=== PATIENT | female | born 1955 | race Caucasian/White ===

== ENCOUNTER → 2016-04-08 | Outpatient (CLI) | payer BC ==
[~2016-04-08] MED LIST: ALBU18002 INH; CALC600T9 PO; CHOL100010 PO; LEVO50TA PO; MOME220A INH; MULTTAB PO; POLY1POW2 PO; TAMO20TA47 PO; ZOLE5INJ IM
--- NOTE | 2016-04-08 14:09 | MAMMOGRAPHY REPORT ---
UNILATERAL LEFT DIGITAL DIAGNOSTIC MAMMOGRAM TOMOSYNTHESIS WITH CAD: 04/08/2016 CLINICAL HISTORY: History of left breast cancer status post lumpectomy September 2015, as well as radiati on therapy. The patient reports no current complaints. TECHNIQUE: Breast tomosynthesis in addition to standard 2D mammography was performed. Current study was also evaluated with a Computer Aided Detection (CAD) system. Left CC and MLO 2-D and tomosynth esis images and spot magnification left CC and ML views were obtained. COMPARISON: Comparison is made to exams dated: 08/28/2015 aspiration, 08/28/2015 mammogram, 08/28/2015 ultrasound biopsy, 08/19/2015 mammogram, 08/19/2015 ultrasound, and 07/26/2015 mammogram - [facility]. BREAST COMPOSITION: The tissue of the left breast is heterogeneously dense, which may obscure small masses. FINDINGS: There are new post surgical changes in the left lower inner quadrant from prior lumpectom y, including new density and architectural distortion at the lumpectomy bed. No suspicious masses o r clusters of calcifications are noted at the lumpectomy bed on the spot magnification views. Addit ionally, there is mild architectural distortion in the left axilla from sentinel lymph node biopsy. The remainder of the left breast is stable compared to prior exams, without suspicious masses, calc ifications, or areas of architectural distortion noted. Benign-appearing left breast calcifications are not significantly changed. IMPRESSION: ACR-BI-RADS CATEGORY 3: PROBABLY BENIGN Expected posttreatment changes in the left breast, without mammographic evidence of malignancy in th e left breast. Recommend bilateral diagnostic mammograms in 6 months, to reevaluate the left breast postsurgical changes and for routine mammography of the right breast. The patient has been verbally notified of the results. Approximately 10% of breast cancers are not detected with mammography. A negative mammographic repor t should not delay biopsy if a clinically suggestive mass is present. Maci Rizzo M.D. /:04/08/2016 11:09:48 Western Felt Hat Blocker: Kendal Sin, [facility] letter sent: Personal History 3 BI-RADS Code: ACR-BI-RADS Category 3: Probably Benign
== END | disposition home or self-care (01) ==
LOC: C.MAMM 10:33
PROVIDERS: ATTEND Radiology Radiation Oncology
DX: Z08 Encounter for follow-up examination after completed treatment for malignant neoplasm (principal); Z85.3 Personal history of malignant neoplasm of breast; Z92.3 Personal history of irradiation

== ENCOUNTER → 2016-05-05 | Outpatient (CLI) | payer BC | END | disposition home or self-care (01) | LOC: C.MAMM 12:35 | PROVIDERS: ATTEND Internal Medicine | DX: M81.0 Age-related osteoporosis without current pathological fracture (principal) ==

== ENCOUNTER → 2016-05-27 | Outpatient (CLI) | payer BC | END | disposition home or self-care (01) | LOC: C.PAPS 09:31 | PROVIDERS: ATTEND Obstetrics & Gynecology | DX: Z01.419 Encounter for gynecological examination (general) (routine) without abnormal findings (principal) ==

== ENCOUNTER → 2016-07-06 | Outpatient (CLI) | payer BC ==
[~2016-07-06] MED LIST changes: -TAMO20TA47 PO; +TAMO20TA9 PO
--- NOTE | 2016-07-08 08:51 | CODING QUERY NO DIAGNOSIS ---
TREATMENT RENDERED WITHOUT A DIAGNOSIS To promote full compliance with coding requirements relating to patient care, physician participation is requested in all cases of ore charger uncertainty. Please assist us with providing a diagnosis/symptom for the test(s) below: A diagnosis/symptom was not documented on your Order. A valid diagnosis/symptom is required to bill all insurances. Please remember that we are unable to code a diagnosis of rule out, probable, possible, questionable, or suspected. Tests that require a diagnosis: DOS: 07/06/16 * SHAVE BIOPSY LEFT RADIAL WRIST DIAGNOSIS: Provider Signature: Date: Thank you Octavia Olivia Klarna Information Management Once completed, please kindly fax back to [phone] For questions please call [phone]
== END | disposition home or self-care (01) ==
LOC: C.PATHSPEC 17:48
PROVIDERS: ATTEND Dermatology
DX: L90.5 Scar conditions and fibrosis of skin (principal)

== ENCOUNTER → 2016-08-04 | Outpatient (CLI) | payer BC ==
[2016-08-04 13:30] VITALS: BP 130/65; PULSE 72; TEMP 36.7; O2SAT 99
--- NOTE | 2016-08-04 17:54 | Radiation Oncology Follow-Up ---
Radiation Oncology Follow-Up Date of Visit August 04, 2016. (Stephania Cruz PA-C) Reason For Visit 6 month follow-up (Stephania Cruz PA-C) Radiation Completion Date Hypofractionation 12/19/15 (Stephania Cruz PA-C) Diagnosis (1) Breast cancer Status: Resolved Onset Date: 09/13/2015 Stage: l Permanent Comment: DIAGNOSIS: Left breast, invasive ductal carcinoma, grade 1, ER/NM positive, Her2 negative, [id number], stage IA TREATMENT: 1. Status post needle biopsy 08/28/2015 2. Lumpectomy/SLN - 09/13/2015, 09/27/2015 3. Status post completion of radiation therapy 12/19/2015 utilizing hypo- fractionation. Received 5130 cGy Last Edited By: Stephania Cruz on Dec 31, 2015 10:34 (Stephania Cruz PA-C) History of Present Illness Ms. Sofia is a 60-year-old postmenopausal female who recently presented with an abnormal mammogram on 07/26/2015 which revealed 2 asymmetries within the left medial breast measuring 5 mm. She subsequently underwent a targeted ultrasound and diagnostic mammogram on 07/19/2015 which revealed a 5.4 mm mass in the lower inner posterior left breast and a similar appearing lobulated 5.2 mm mass in the middle one third of the lower breast. Ultrasonography of the left breast lesions confirmed hypo-echoic, solid-appearing masses in the left breast at the 7:00 and 9:00 positions. She subsequently underwent targeted ultrasound guided biopsies of both lesions on 08/28/2015. The mass at 9:00 was completely aspirated and assumed to be benign. The mass at 7:00 in the left breast was biopsied with clip placement on the same day as well. Pathology of the left breast mass revealed atypical intraductal papillary lesion and a low-grade ductal carcinoma in situ cannot be ruled out. The patient was subsequently referred to Dr. Alistair Kumar who recommended an excisional biopsy which was completed on 09/13/2015. The pathology was initially read to favor in situ carcinoma and was sent out for a pathologic review at the [place] and the final pathologic specimen confirmed invasive ductal carcinoma. The pathology report stated the mass was 1.2 cm in the greatest dimension and the margins were all negative by at least 5 mm. The tumor was grade 1 and was estrogen receptor positive, progesterone receptor positive and HER-2 negative. There was no evidence of ductal carcinoma in situ or lymphovascular space invasion. After reviewing the pathology report, Dr. Kumar took the patient back to the operating room for sentinel lymph node biopsy on 09/27/2015 which did reveal no evidence of breast carcinoma in the [address] Kumar has ordered a Oncotype DX at the request of the patient and has referred the patient for consideration of radiation therapy. Overall, the patient is doing relatively well and has healed up from surgery. She has no other complaints. She underwent a CT simulation and was found a candidate for hypo-fractionation. Radiation was completed 12/19/2015 she received 5130 cGy. (Stephania Cruz PA-C) Interim History She's been doing well over the past 6 months. She has noted no changes to her breast. She has detected no masses. She previously had some mild tenderness no area of the axilla. This resolved without difficulty. She has noted no swelling of her arm. She is up-to-date on mammography. She continues on tamoxifen and denies side effects. (Stephania Cruz PA-C) Allergies Coded Allergies: Erythromycin (Verified Allergy, Intermediate, temporary loss of hearing, 02/18/15) affected hearing x 6 weeks Penicillins (Verified Allergy, Unknown, 04/19/09) Home Medications Scheduled Calcium Carbonate-Vitamin D (Calcium + D), DAILY Cholecalciferol (Vitamin D), 1,000 INTER.UNIT PO DAILY Levothyroxine Sodium (Synthroid), 1 TAB PO DAILY Mometasone Furoate (Asmanex 120 Metered Doses), 1 PUFF INH BID Multivitamins/Minerals (Mvi With Minerals), 1 TAB PO DAILY Tamoxifen (Nolvadex), 20 MG PO DAILY Zoledronic Acid (Reclast), 5 MG IM YEARLY Review of Systems Gastrointestinal: Symptoms: WNL Oral: Symptoms: No Problems Respiratory: Symptoms: WNL Urinary: Symptoms: WNL Skin: Symptoms: No Problems Breast: Right Upper Arm Measurement: 29.5 Right Mid Arm Measurement: 24.5 Right Wrist Measurement: 15.5 Left Upper Arm Measurement: 31.0 Left Mid Arm Measurement: 24.5 Left Wrist Measurement: 15.0 Arm Dominence: Right (Stephania Cruz PA-C) Physical Exam Vital Signs Date Time Temp Pulse Resp B/P Pulse Ox O2 Delivery O2 Flow Rate FiO2 08/04/16 13:30 36.7 72 20 130/65 99 Fatigue: None General Appearance: no apparent distress Eyes: normal inspection, EOMI ENT: normal ENT inspection, hearing grossly normal Neck: supple, no adenopathy, thyroid normal Respiratory/Chest: lungs clear, no respiratory distress, no accessory muscle use Breast: Breast examination reveals well-healed incisions of the left breast. There are no masses or tenderness and no axillary adenopathy. There are no skin retractions or nipple changes. Using the Morton score cosmesis she has a an excellent outcome. The right breast showed no masses or tenderness and no axillary adenopathy. Cardiovascular: regular rate, rhythm, no gallop, no murmur Extremities: no pedal edema Neurologic/Psychiatric: no motor/sensory deficits, alert, normal mood/affect Skin: normal color (Stephania Cruz PA-C) Additional Studies Patient: LULU SOFIA [facility] Rec: [id number] Address1: [address] Address2: Acct ID: [id number] Date: 1955 Sex: F Ref Phy: Alistair Kumar M.D. Att Phy: Stephania Cruz PA-C Kerry Phy: Rickey Lopez M.D. Inter Phy: Maci Rizzo MD [facility] Zip: [place] [address] SC: C.MAMM Report #: [id number] Sole Molder: [id number] Diagnosis: S/P RADIATION LT BREAST CA Service Date: 04/08/16 MNE: [id number] Ordering Dr: Stephania Cruz PA-C CC: Stephania Cruz PA-C CONF: DICTATED BY: Maci Rizzo MD MAMMOGRAPHY REPORT UNILATERAL LEFT DIGITAL DIAGNOSTIC MAMMOGRAM TOMOSYNTHESIS WITH CAD: 04/08/2016 CLINICAL HISTORY: History of left breast cancer status post lumpectomy September 2015 , as well as radiation therapy. The patient reports no current complaints. TECHNIQUE: Breast tomosynthesis in addition to standard 2D mammography was performed. Current study was also evaluated with a Computer Aided Detection (CAD ) system. Left CC and MLO 2-D and tomosynthesis images and spot magnification left CC and ML views were obtained. COMPARISON: Comparison is made to exams dated: 08/28/2015 aspiration, 08/28/2015 mammogram, 08/28/2015 ultrasound biopsy, 08/19/2015 mammogram, 08/19/2015 ultrasound , and 07/26/2015 mammogram - [facility]. BREAST COMPOSITION: The tissue of the left breast is heterogeneously dense, which may obscure small masses. FINDINGS: There are new post surgical changes in the left lower inner quadrant from prior lumpectomy, including new density and architectural distortion at the lumpectomy bed. No suspicious masses or clusters of calcifications are noted at the lumpectomy bed on the spot magnification views. Additionally, there is mild architectural distortion in the left axilla from sentinel lymph node biopsy. The remainder of the left breast is stable compared to prior exams , without suspicious masses, calcifications, or areas of architectural distortion noted. Benign-appearing left breast calcifications are not significantly changed. IMPRESSION: ACR-BI-RADS CATEGORY 3: PROBABLY BENIGN Expected posttreatment changes in the left breast, without mammographic evidence of malignancy in the left breast. Recommend bilateral diagnostic mammograms in 6 months, to reevaluate the left breast postsurgical changes and for routine mammography of the right breast. The patient has been verbally notified of the results. Approximately 10% of breast cancers are not detected with mammography. A negative mammographic report should not delay biopsy if a clinically suggestive mass is present. Maci Rizzo M.D. ah/:04/08/2016 11:09:48 Door Closer: Kendal Sin, [facility] letter sent: Personal History 3 BI-RADS Code: ACR-BI-RADS Category 3: Probably Benign Dictated by: Maci Rizzo MD Signed by: Maci Rizzo MD (Stephania Cruz PA-C) Assessment & Plan Plan: Continue with regular he scheduled mammography. She is scheduled for her next bilateral digital mammogram in September. We will she continues on tamoxifen. Continue regular follow-up with Dr. Kumar and Dr. Lopez. We asked her to return to our office in 1 year. She may call if she has any questions or concerns in the interim. (Stephania Cruz PA-C) I agree with note created by Stephania Cruz PA-C. I reviewed the patient's chart and information with her. I have examined and evaluated the patient. I reviewed relevant clinical information and answered the patient's and/or family' s questions. (Veeral. Quiñonez MD) Total Time In Follow-Up I spent 20 minutes speaking to the patient and performing examination. I spent 15 minutes reviewing information and completing this note. (Stephania Cruz PA-C) I spent 15 minutes examining and counseling the patient. (Veeral. Quiñonez MD) Copy To Alistair Kumar M.D.; Rickey Lopez M.D. Problem Qualifiers (1) Breast cancer: Breast location: lower outer quadrant of breast Estrogen receptor status: positive Patient sex: female Laterality: left Qualified Codes: C50.512 - Malignant neoplasm of lower-outer quadrant of left female breast; Z17.0 - Estrogen receptor positive status [ER+]
== END | disposition home or self-care (01) ==
LOC: C.ONC 13:28
PROVIDERS: ATTEND Physician Assistant Medical
DX: Z08 Encounter for follow-up examination after completed treatment for malignant neoplasm (principal); Z92.3 Personal history of irradiation; Z85.3 Personal history of malignant neoplasm of breast

== ENCOUNTER → 2016-10-07 | Outpatient (CLI) | payer BC ==
[~2016-10-07] MED LIST changes: +TAMO20TA47 PO; -TAMO20TA9 PO
--- NOTE | 2016-10-07 12:44 | MAMMOGRAPHY REPORT ---
BILATERAL DIGITAL DIAGNOSTIC MAMMOGRAM TOMOSYNTHESIS WITH CAD: 10/07/2016 CLINICAL HISTORY: 61-year-old woman with a personal history of left breast cancer status post breast conservation treatment. TECHNIQUE: Bilateral breast tomosynthesis in addition to standard 2D mammography was performed. Spot magnification CC and ML views were also obtained. Current study was also evaluated with a Computer Aided Detection (CAD) system. COMPARISON: Comparison is made to exams dated: 04/08/2016 mammogram, 08/28/2015 mammogram, 08/19/2015 ma mmogram, 08/19/2015 ultrasound, 07/26/2015 mammogram, and 07/25/2014 mammogram - [facility]. BREAST COMPOSITION: The tissue of both breasts is heterogeneously dense, which may obscure small mas ses. FINDINGS: There is expected architectural distortion in the lower inner middle and posterior left araceli ast, at the site of prior lumpectomy. There is mild skin irregularity in the medial left breast, and mild diffuse skin thickening of the left breast, likely related to prior treatment. No new suspicio us mass, architectural distortion or cluster of microcalcifications is seen bilaterally. IMPRESSION: ACR-BI-RADS CATEGORY 3: PROBABLY BENIGN Expected post changes in the left breast, and stable mammographic appearance of the right breast, wit hout mammographic evidence of malignancy bilaterally. Another close follow-up diagnostic left mammog flakita and possible ultrasound is recommended in 6 months. Routine mammography of the right breast is d ue in 12 months. These results and recommendations were discussed with the patient at the time of the exam. Approximately 10% of breast cancers are not detected with mammography. A negative mammographic report should not delay biopsy if a clinically suggestive mass is present. Cecilia Baum M.D. ay/:10/07/2016 10:45:02 Ranger Aide: Mildred VILLAFANA(Fina)(Jaki), [facility] letter sent: Follow Up Recommended 3 BI-RADS Code: ACR-BI-RADS Category 3: Probably Benign
== END | disposition home or self-care (01) ==
LOC: C.MAMM 10:19
PROVIDERS: ATTEND Physician Assistant Medical
DX: Z08 Encounter for follow-up examination after completed treatment for malignant neoplasm (principal); Z85.3 Personal history of malignant neoplasm of breast

== ENCOUNTER → 2016-10-15 | Day surgery (SDC) | payer BC ==
[2016-10-02 09:58] VITALS: Ht 170.2 cm; Wt 70.0 kg
[~2016-10-15] VITALS: Ht 170.2 cm; Wt 70.0 kg
[~2016-10-15] MED LIST changes: +LIDOCAINE HCL 2% 2 ML VIAL (20MG/ML) ONE; +PROPOFOL IV EMULSION 10 MG/ML 20 ML VIAL IV ONE; +SODIUM CHLORIDE 0.9% 500ML 500 ML IV ONE
--- NOTE | 2016-10-15 14:04 | Endo History and Physical ---
History & Physical Date of Service: Oct 15, 2016. Chief Complaint: Screening Referring Physician: Ariel Abdalla History of Present Illness 61 yo CF who presents for screening colonoscopy. Past Medical History Osteoporosis, Arthritis, Asthma, Gastrointestinal Disorder, Reflux, Cancer, Thyroid Disease Past Surgical History Hx Cardiac Surgery: No Hx Internal Defibrillator: No Hx Pacemaker: No Hx Abdominal Surgery: Yes (CERVICAL GROWTH REMOVAL) Hx of Implantable Prosthesis: No Hx Post-Op Nausea and Vomiting: No Hx Cancer Surgery: Yes (LT BREAST LUMPECTOMY WITH SENTINEL NODE BIOPSY) Hx Thoracic Surgery: No Hx Orthopedic: Yes (LT WRIST GANGLION CYSTECTOMY) Hx Urinary Tract Surgery: No Family History Colon CA, Polyp Social History Smoking Status: Never Smoker Hx Substance Use: No Hx Alcohol Use: Yes (OCCASIONAL) Allergies Coded Allergies: Erythromycin (Verified Allergy, Intermediate, temporary loss of hearing, ) affected hearing x 6 weeks Penicillins (Verified Allergy, Unknown, HIVES, 10/02/16) Current Medications Reported Home Medications Medications Dose Route/Sig Max Daily Dose Days Date Category Proair Respiclick (Albuterol Sulfate) 108 Mcg/Act Aer 2 Puffs INH Q4H PRN 10/02/16 Reported Polyethylene Glycol 3350 (Polyethylene Glycol 3350 (Bulk) 1 Pow Pow 17 Gm PO DAILY PRN 10/02/16 Reported Reclast (Zoledronic Acid) 5 Mg/100 Ml Inj 5 Mg IM YEARLY 08/04/16 Reported Nolvadex (Tamoxifen Citrate) 20 Mg Tab 20 Mg PO QAM 02/04/16 Reported Mvi With Minerals (Multivitamins/Minerals) Tab 1 Tab PO QAM 02/18/15 Reported Vitamin D (Cholecalciferol) 1,000 Inter.unit Tab 1,000 Inter.unit PO QAM 02/18/15 Reported Calcium + D (Calcium Carbonate-Vitamin D) 1 Tab Tab 1 Tab PO QAM 02/18/15 Reported Synthroid (Levothyroxine Sodium) 50 Mcg Tab 1 Tab PO QAM 02/18/15 Reported Asmanex 120 Metered Doses (Mometasone Furoate) 220 Mcg/ Aer 1 Puff INH BID 02/18/15 Reported Vital Signs Weight (Kilograms): 70 Height (Feet): 5 Height (Inches): 7 Date Time Temp Pulse Resp B/P (MAP) Pulse Ox O2 Delivery O2 Flow Rate FiO2 10/15/16 13:59 36.4 72 16 114/63 (80) 98 Room Air Physical Exam General Appearance: WD/WN, no apparent distress Respiratory/Chest: Auscultation: breath sounds normal Cardiovascular: Heart Auscultation: RRR Abdomen: Bowel Sounds: normal Inspection & Palpation: soft, non-distended, no tenderness, guarding & rebound Assessment and Plan Assessment: 61 yo CF who presents for screening colonoscopy. Plan: Proceed with colonoscopy.
--- NOTE | 2016-10-15 15:01 | GI REPORT ---
Procedure Date: 10/15/2016 2:27 PM THIS REPORT HAS BEEN AMENDED Addendum Number: 1 Addendum Date: 10/15/2016 3:44:50 PM No specimens were collected during this procedure, and therefore, no pathology is pending. Repeat colonoscopy in 10 years. Procedure: Colonoscopy Indications: Screening for colorectal malignant neoplasm Medicines: Monitored Anesthesia Care Complications: No immediate complications. Estimated Blood Loss: Estimated blood loss: none. Procedure: Pre-Anesthesia Assessment: - Prior to the procedure, a History and Physical was performed, and patient medications and allergies were reviewed. The patient's tolerance of previous anesthesia was also reviewed. The risks and benefits of the procedure and the sedation options and risks were discussed with the patient. All questions were answered, and informed consent was obtained. Prior Anticoagulants: The patient has taken no previous anticoagulant or antiplatelet agents. ASA Grade Assessment: II - A patient with mild systemic disease. After reviewing the risks and benefits, the patient was deemed in satisfactory condition to undergo the procedure. After I obtained informed consent, the scope was passed under direct vision. Throughout the procedure, the patient's blood pressure, pulse, and oxygen saturations were monitored continuously. The On-site loaner was introduced through the anus and advanced to the cecum, identified by appendiceal orifice and ileocecal valve. The colonoscopy was performed without difficulty. The patient tolerated the procedure well. The quality of the bowel preparation was good. The terminal ileum, ileocecal valve, appendiceal orifice, and rectum were photographed. Findings: Non-bleeding internal hemorrhoids were found during retroflexion. The hemorrhoids were small. Impression: - Non-bleeding internal hemorrhoids. - No specimens collected. Recommendation: - Resume previous diet. - Continue present medications. - Repeat colonoscopy for surveillance based on pathology results. - Return to primary care physician as previously scheduled. Tristin Emanuel, DO 10/15/2016 3:00:44 PM This report has been signed electronically. Note Initiated On: 10/15/2016 2:27 PM I attest to the content of the Intraoperative Record and orders documented therein, exceptions below Tristin BernabeFátima Emanuel, DO 10/15/2016 3:45:36 PM This report has been signed electronically.
[2016-10-15 15:17] VITALS: BP 99/60; PULSE 57; O2SAT 99
--- NOTE | 2016-10-15 15:18 | Discharge Instructions ---
Endoscopy Patient Instructions Date / Procedure(s) Performed Oct 15, 2016. Colonoscopy Allergy Information Coded Allergies: Erythromycin (Verified Allergy, Intermediate, temporary loss of hearing, ) affected hearing x 6 weeks Penicillins (Verified Allergy, Unknown, HIVES, 10/02/16) Discharge Date / Findings Oct 15, 2016. Internal hemorrhoids Medication Instructions OK to resume all medications today as prescribed Reported Home Medications Medications Dose Route/Sig Max Daily Dose Days Date Category Proair Respiclick (Albuterol Sulfate) 108 Mcg/Act Aer 2 Puffs INH Q4H PRN 10/02/16 Reported Polyethylene Glycol 3350 (Polyethylene Glycol 3350 (Bulk) 1 17 Gm PO DAILY PRN 10/02/16 Reported Reclast (Zoledronic Acid) 5 Mg/100 Ml Inj 5 Mg IM YEARLY 08/04/16 Reported Nolvadex (Tamoxifen Citrate) 20 Mg Tab 20 Mg PO QAM 02/04/16 Reported Mvi With Minerals (Multivitamins/Minerals) Tab 1 Tab PO QAM 02/18/15 Reported Vitamin D (Cholecalciferol) 1,000 Inter.unit Tab 1,000 Inter.unit PO QAM 02/18/15 Reported Calcium + D (Calcium Carbonate-Vitamin D) 1 Tab Tab 1 Tab PO QAM 02/18/15 Reported Synthroid (Levothyroxine Sodium) 50 Mcg Tab 1 Tab PO QAM 02/18/15 Reported Asmanex 120 Metered Doses (Mometasone Furoate) 220 Mcg/ Aer 1 Puff INH BID 02/18/15 Reported Provider Instructions Activity Restrictions - No exercising or heavy lifting for 24 hours. - Do not drink alcohol the day of the procedure. - Do not drive a car or operate machinery until the day after the procedure. - Do not make any important decisions or sign important papers in 24 hours after the procedure. Following Day: - Return to full activity which may include returning to work/school. Diet Start your diet with liquids and light foods (jello, soup, juice, toast). Then eat your usual diet if not nauseated. Treatment For Common After Affects For mild abdominal pain, bloating, or excessive gas: - Rest - Eat lightly - Lie on right side Follow-Up Information Follow-up with Ariel Abdalla as scheduled Anesthesia Information What You Should Know You have had a procedure that required some medicine to reduce anxiety and discomfort. This treatment is called moderate sedation. After receiving the treatment, you may be sleepy, but you will be able to breathe on your own. The effects of the treatment may last for several hours. Follow these instructions along with Activity/Diet recommendations noted above: * Do NOT do anything where dizziness or clumsiness would be dangerous. * Rest quietly at home today, then you can be up and about tomorrow. * Have a responsible person stay with you the rest of today. * You may have had an I.V. today. If so, you may take the dressing off later today. Recommendations Call your doctor if: * Trouble breathing * Continuous vomiting for more than 24 hours * Temperature above 101 degrees * Severe abdominal pain or bloating * Pain not relieved by pain medicine ordered * There is increased drainage or redness from any incision * A large amount of rectal bleeding greater than 2-3 tablespoons. (If you had a polyp/s removed or have hemorrhoids, a small amount of blood - from the rectum is to be expected.) * You have any unanswered questions or concerns. IN THE EVENT OF A SERIOUS EMERGENCY, GO TO THE NEAREST EMERGENCY ROOM Your discharge instructions were prepared by provider Tristin Emanuel. Patient Instructions Signature Page Cele Sofia Patient (or Guardian) Signature/Date: I have read and understand the instructions given to me by my caregivers. Caregiver/RN/Doctor Signature/Date: The above-named patient and/or guardian has received patient instructions on this date. + Original Patient Signature Page (only) stays with chart. Please make copy for patient.
--- NOTE | 2016-10-15 15:41 | Anesthesiology Progress Note ---
Anesthesia Post Op Note Date & Time Oct 15, 2016 at 15:41 Vital Signs Pain Intensity: 0 Vital Signs Past 12 Hours Date Time Temp Pulse Resp B/P (MAP) Pulse Ox O2 Delivery O2 Flow Rate FiO2 10/15/16 15:17 57 16 99/60 (73) 99 Room Air 10/15/16 15:07 60 16 98/56 (70) 95 Room Air 10/15/16 14:57 61 16 94/43 (60) 100 Room Air 10/15/16 13:59 36.4 72 16 114/63 (80) 98 Room Air Notes Mental Status: alert / awake / arousable, participated in evaluation Pt Amnestic to Procedure: Yes Nausea / Vomiting: adequately controlled Pain: adequately controlled Airway Patency, RR, SpO2: stable & adequate BP & HR: stable & adequate Hydration State: stable & adequate Anesthetic Complications: no major complications apparent
== END | disposition home or self-care (01) ==
LOC: C.GI 13:26
PROVIDERS: ATTEND Internal Medicine
DX: Z12.11 Encounter for screening for malignant neoplasm of colon (principal); K64.8 Other hemorrhoids; Z80.0 Family history of malignant neoplasm of digestive organs; Z83.71 Family history of colonic polyps; J45.909 Unspecified asthma, uncomplicated; K21.9 Gastro-esophageal reflux disease without esophagitis; E07.9 Disorder of thyroid, unspecified; M81.0 Age-related osteoporosis without current pathological fracture; Z79.899 Other long term (current) drug therapy

== ENCOUNTER → 2017-04-12 | Outpatient (CLI) | payer OTHER ==
[~2017-04-12] MED LIST changes: -LIDOCAINE HCL 2% 2 ML VIAL (20MG/ML) ONE; -PROPOFOL IV EMULSION 10 MG/ML 20 ML VIAL IV ONE; -SODIUM CHLORIDE 0.9% 500ML 500 ML IV ONE; -TAMO20TA47 PO; +TAMO20TA9 PO
--- NOTE | 2017-04-12 15:53 | MAMMOGRAPHY REPORT ---
UNILATERAL LEFT DIGITAL DIAGNOSTIC MAMMOGRAM TOMOSYNTHESIS WITH CAD: 04/12/2017 CLINICAL HISTORY: History of left breast cancer status post lumpectomy September 2015. The patient report s no current complaints. TECHNIQUE: Breast tomosynthesis in addition to standard 2D mammography was performed. Current study was also evaluated with a Computer Aided Detection (CAD) system. Left CC and MLO 2-D and tomosynthes is images and spot magnification left CC and ML views were obtained. COMPARISON: Comparison is made to exams dated: 10/07/2016 mammogram, 04/08/2016 mammogram, 08/28/2015 m ammogram, 08/28/2015 ultrasound biopsy, 08/19/2015 mammogram, and 08/19/2015 ultrasound - [facility]. BREAST COMPOSITION: The tissue of the left breast is heterogeneously dense, which may obscure small masses. FINDINGS: There are stable post surgical changes in the left lower inner quadrant from prior lumpecto my, including stable density and architectural distortion at the lumpectomy bed. The remainder of th e left breast is stable compared to prior exams, without suspicious masses, calcifications, or areas of architectural distortion noted. A linear scar marker denotes a scar on the left medial breast. IMPRESSION: ACR-BI-RADS CATEGORY 3: PROBABLY BENIGN Stable post surgical changes in the left breast, without mammographic evidence of malignancy in the l eft breast. Recommend bilateral diagnostic tomosynthesis mammograms in 6 months, to reevaluate left breast postsurgical changes and for routine mammography of the right breast. The patient has been verbally notified of the results. Approximately 10% of breast cancers are not detected with mammography. A negative mammographic report should not delay biopsy if a clinically suggestive mass is present. Maci Rizzo M.D. /:04/12/2017 11:31:51 Tractor Mechanic Helper: Kendal VILLAFANA(Fina)(M), [facility] letter sent: Personal History 3 BI-RADS Code: ACR-BI-RADS Category 3: Probably Benign
== END | disposition home or self-care (01) ==
LOC: C.MAMM 10:24
PROVIDERS: ATTEND Physician Assistant Medical
DX: N64.89 Other specified disorders of breast (principal)

== ENCOUNTER → 2017-10-11 | Outpatient (CLI) | payer OTHER ==
--- NOTE | 2017-10-11 15:42 | MAMMOGRAPHY REPORT ---
BILATERAL DIGITAL DIAGNOSTIC MAMMOGRAM TOMOSYNTHESIS WITH CAD: 10/11/2017 CLINICAL HISTORY: 62-year-old woman with a personal history of left breast cancer status post breast conservation treatment presents for continued close follow-up in the left breast and also annual mamm ographic evaluation of the right breast. Lumpectomy was performed 09/13/2015. TECHNIQUE: Bilateral CC and MLO 2D and tomosynthesis images were obtained. Spot magnification left C C and ML views were also performed over the surgical site in the left breast. Current study was als o evaluated with a Computer Aided Detection (CAD) system. COMPARISON: Comparison is made to exams dated: 04/12/2017 mammogram, 10/07/2016 mammogram, 04/08/2016 m ammogram, 08/28/2015 mammogram, 08/19/2015 mammogram, and 07/26/2015 mammogram - [facility]ter. BREAST COMPOSITION: The tissue of both breasts is heterogeneously dense, which may obscure small mass es. FINDINGS: A linear scar marker overlies the lower inner middle one third of the left breast. There i s expected architectural distortion at the surgical site in the lower inner posterior left breast. A few scattered benign-appearing rim and punctate calcifications. No new suspicious mass, architectura l distortion or cluster of microcalcifications is seen. IMPRESSION: ACR BI-RADS CATEGORY 2: BENIGN Expected posttreatment changes in the left breast and stable mammographic appearance of the right br east, without mammographic evidence of malignancy bilaterally. Recommend bilateral tomosynthesis dejah mography in 12 months, and would recommend remaining a diagnostic patient given the personal history of left breast cancer, in case any additional mammographic views and/or ultrasound may be needed. These results and recommendations were discussed with the patient at the time of the exam. She tenta tively scheduled a follow-up appointment prior to leaving our department. Some breast cancers are not detected with mammography. A negative mammographic report should not ji y biopsy if a clinically suggestive mass is present. Cecilia Baum M.D. ay/:10/11/2017 10:39:18 Assembler Molded Frames: RT Ken(R)(M), [facility] letter sent: Normal 1/2 BI-RADS Code: ACR BI-RADS Category 2: Benign
== END | disposition home or self-care (01) ==
LOC: C.MAMM 10:03
PROVIDERS: ATTEND Physician Assistant Medical
DX: Z85.3 Personal history of malignant neoplasm of breast (principal); Z08 Encounter for follow-up examination after completed treatment for malignant neoplasm